=== PATIENT | male | born 1985 | race Caucasian/White ===

== ENCOUNTER 2017-10-30 12:17 | Emergency (ER) | payer OTHER ==
[2017-10-30 12:25] VITALS: BP 132/82; PULSE 78; O2SAT 98
[2017-10-30] MEDS ORDERED: Adacel Vial IM ONE ×2 (12:39→12:46)
[2017-10-30] MEDS ORDERED: KEFLEX 500 MG PO ONE (12:40)
[2017-10-30] MEDS ORDERED: KEFLEX 500 MG ONE (12:46)
--- NOTE | 2017-10-30 12:55 | ERPHSYRPT ---
- History of Present Illness Time Seen by Provider: 10/30/17 12:41 Source: patient Exam Limitations: no limitations Patient Subjective Stated Complaint: Laceration to right Forearm. Bleeding controlled. Triage Nursing Assessment: Pt presents to the ED with complaints of right forearm laceration. Pt states he cut himself with a knife accidently. Bleeding controlled prior to arrival. No distress noted. Physician History: 1cm cut mid volar left forearm today w/ knife at work by accident, bleeding controlled, no other injury Allergies/Adverse Reactions: No Known Drug Allergies Allergy (Verified 10/30/17 12:26) Home Medications: No Reportable Medications [No Reported Medications] 10/30/17 [History] Hx Tetanus, Diphtheria Vaccination/Date Given: No Hx Influenza Vaccination/Date Given: No Hx Pneumococcal Vaccination/Date Given: No Immunizations Up to Date: No - Review of Systems Neurological: No Dizziness - Past Medical History Pertinent Past Medical History: No - Past Surgical History Past Surgical History: No - Social History Smoking Status: Current every day smoker How long have you smoked: 10 years Exposure to second hand smoke: Yes Drug Use: none Patient Lives Alone: No - Nursing Vital Signs Nursing Vital Signs: Initial Vital Signs Temperature 98.5 F 10/30/17 12:22 Pulse Rate 78 10/30/17 12:22 Respiratory Rate 16 10/30/17 12:22 Blood Pressure 132/82 10/30/17 12:22 O2 Sat by Pulse Oximetry 98 10/30/17 12:22 Pain Scale Pain Intensity 0 - Physical Exam General Appearance: no apparent distress Extremity Exam: normal range of motion Neurologic Exam: alert, oriented x 3, cooperative Skin Exam: other (1cm lac as in HPI) SpO2 Interpretation: normal SpO2: 98 Oxygen Delivery: Room Air Procedures - Additional Procedures Progress: procedure: sterile prep, 1% local lidocaine, copious irrigation, no fb and no tendon lac seen, 4-0 nylon running suture to close - Course Nursing assessment & vital signs reviewed: Yes Ordered Tests: Medication Summary Discontinued Medications Generic Name Dose Route Start Last Admin Trade Name Freq PRN Reason Stop Dose Admin Cephalexin HCl 500 mg 10/30/17 12:40 Keflex 500 Mg PO 10/30/17 12:41 STAT ONE Diphtheria/Tetanus/Acell Pertussis 0.5 ml 10/30/17 12:39 Adacel Vial IM 10/30/17 12:40 .ONCE ONE - Progress Progress: improved - Departure Time of Disposition: 12:58 Departure Disposition: Home Clinical Impression: Laceration Condition: Stable Critical Care Time: No Instructions: Laceration Repair With Stitches (DC) Additional Instructions: keflex, motrin, sutures out in 10 days, return if worse, wound care
== END 2017-10-30 13:11 | disposition home or self-care (01) ==
LOC: ED 12:17
PROC: 0HQEXZZ Repair Left Lower Arm Skin, External Approach (ICD-10-PCS; principal; 2017-10-30)
DX: S51.812A Laceration without foreign body of left forearm, initial encounter (principal); W26.0XXA Contact with knife, initial encounter; Y93.9 Activity, unspecified; Y92.9 Unspecified place or not applicable; Y99.0 Civilian activity done for income or pay
CPT/HCPCS: 12001; 90471; 90715; 99283; 99284; A9270-GY